=== PATIENT | female | born 1955 | race Caucasian/White ===

== ENCOUNTER 2017-09-06 17:51 | Emergency (ER) | payer OTHER ==
[2017-09-06 18:02] VITALS: O2SAT 98
[2017-09-06] MEDS ORDERED: ONDANSETRON INJ 4 MG/2 ML VIAL IV ONE (18:19)
--- NOTE | 2017-09-06 18:41 | RAD ---
EXAM DESCRIPTION: Chest,1 View CLINICAL HISTORY: dizzy COMPARISON: September 03, 2010 FINDINGS: Cardiac silhouette is within normal limits. Aorta is tortuous. There is mild elevation of the right hemidiaphragm. There is no focal parenchymal or pleural disease. There is no acute osseous process visualized. IMPRESSION: No evidence of acute cardiopulmonary disease. Electronically signed by: Dennis Elias MD 09/06/2017 6:40 PM PRINCIPAL STRATEGIST
--- NOTE | 2017-09-06 18:55 | CT ---
EXAM DESCRIPTION: Head CLINICAL HISTORY: dizzness, N/V, history of CVA COMPARISON: September 03, 2010 TECHNIQUE: Contiguous axial images of the brain were obtained without the administration of intravenous contrast. This exam was performed according to our departmental dose-optimization program, which includes automated exposure control, adjustment of the mA and/or kV according to patient size and/or use of iterative reconstruction technique. FINDINGS: There is no acute intracranial hemorrhage or mass effect. Ventricular system is within normal limits. There is an old infarct within the right cerebellum. Areas of low-attenuation in the periventricular white matter are nonspecific but suggestive small vessel disease. There is adequate gallegos-white matter differentiation. There is no skull fracture. The visualized paranasal sinuses and mastoid air cells are within normal limits. There is atherosclerosis. IMPRESSION: No acute intracranial abnormalities. Electronically signed by: Dennis Elias MD 09/06/2017 6:54 PM [facility]
[2017-09-06] MEDS ORDERED: SODIUM CHLORIDE 0.9% 1000ML 1,000 ML IVS ONE ×2 (19:03→20:59)
[2017-09-06] MEDS ORDERED: MECLIZINE HCL 12.5 MG TAB PO ONE (20:58)
--- NOTE | 2017-09-06 22:52 | ED.PDOC ---
History of Present Illness - General Chief Complaint: Neuro Symptoms/Deficits Stated Complaint: dizziness, nausea Time Seen by Provider: 09/06/17 17:56 Source: patient Exam Limitations: no limitations - History of Present Illness Initial Comments: Patient presents with dizziness since this afternoon. She said it occurred once at the salon then again after she was driving. It is associated with nausea and vomited x one. She has had brief episodes in the past but all have resolved much more quickly. Denies any other symptoms. Timing/Duration: 4-6 hours Severity: moderate Improving Factors: nothing Worsening Factors: nothing Associated Symptoms: nausea/vomiting Allergies/Adverse Reactions: Allergies Morphine Allergy (Verified 04/25/16 22:08) Home Medications: Ambulatory Orders Glipizide 10 mg PO DAILY 04/25/16 Losartan Potassium 100 mg PO DAILY 04/25/16 Metformin HCl 500 mg PO TID 04/25/16 Metoprolol Succinate [Toprol Xl] 200 mg PO BID 04/25/16 hydrALAZINE HCl [(None)] 25 mg PO TID 04/25/16 Ciprofloxacin [Cipro] 500 mg PO BID #20 tab 04/26/16 Famotidine 20 mg PO DAILY #30 tab 04/26/16 Metronidazole 500 mg PO TID #30 tab 04/26/16 Ondansetron [Zofran Odt] 4 mg PO Q4H PRN #10 tab 04/26/16 Promethazine HCl [Phenergan] 25 mg NV Q6H PRN #10 sup 04/26/16 Meclizine HCl [Meclizine 25] 25 mg PO DAILY #10 tab 09/06/17 Review of Systems - Review of Systems Constitutional: States: no symptoms reported EENTM: States: no symptoms reported Respiratory: States: no symptoms reported Cardiology: States: no symptoms reported Gastrointestinal/Abdominal: States: no symptoms reported Genitourinary: States: no symptoms reported Musculoskeletal: States: no symptoms reported Skin: States: no symptoms reported Neurological: States: see HPI Endocrine: States: no symptoms reported Past Medical History (General) - Patient Medical History Hx Seizures: No Hx Stroke: Yes Hx Dementia: No Hx Asthma: No Hx of COPD: No Hx Cardiac Disorders: Yes Hx Congestive Heart Failure: No Hx Pacemaker: No Hx Hypertension: Yes Hx Thyroid Disease: No Hx Diabetes: Yes Hx Gastroesophageal Reflux: No Hx Renal Disease: No Hx Cancer: No Hx of HIV: No Hx Hepatitis C: No Hx MRSA: No - Vaccination History Hx Tetanus, Diphtheria Vaccination: No Hx Influenza Vaccination: Yes Hx Pneumococcal Vaccination: No - Social History Hx Tobacco Use: No Hx Chewing Tobacco Use: No Hx Alcohol Use: No Hx Substance Use: No Hx Substance Use Treatment: No Hx Depression: No Hx Physical Abuse: No Hx Emotional Abuse: No Hx Suspected Abuse: No - Female History Patient : No Family Medical History - Family History Mother Family History: Unknown Physical Exam - Physical Exam General Appearance: Alert Eye Exam: bilateral normal Ears, Nose, Throat: normal ENT inspection Neck: non-tender, full range of motion, supple Respiratory: lungs clear, normal breath sounds Cardiovascular/Chest: normal peripheral pulses, regular rate, rhythm, no edema Gastrointestinal/Abdominal: normal bowel sounds, non tender, soft Extremity: normal range of motion, non-tender, normal inspection 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, no motor/sensory deficits, alert, normal mood/affect, oriented x 3 DTR: 2+: Biceps, left, Biceps, right, Triceps, left, Triceps, right, Brachioradialis, left, Brachioradialis, right, Achilles, left, Achilles, right, Patellar, left, Patellar, right Skin Exam: normal color Lymphatic: no adenopathy Progress - Progress Progress: 09/06/17 22:53 Laboratory Tests 09/06/17 09/06/17 09/06/17 18:03 18:19 18:19 WBC 13.0 H RBC 4.74 Hgb 12.6 Hct 38.6 MCV 81.4 MCH 26.7 L MCHC 32.8 L RDW 13.7 Plt Count 396 MPV 7.4 Absolute Neuts (auto) 10.80 H Absolute Lymphs (auto) 1.70 Absolute Monos (auto) 0.30 Absolute Eos (auto) 0.00 Absolute Basos (auto) 0.10 Neutrophils % 83.5 H Lymphocytes % 13.2 L Monocytes % 2.5 Eosinophils % 0.1 L Basophils % 0.7 PT INR PTT (SP) Sodium 135 Potassium 3.9 Chloride 100 L Carbon Dioxide 23 Anion Gap 15.9 BUN 28 H Creatinine 1.16 BUN/Creatinine Ratio 24.1 H POC Glucose 212 H Random Glucose 232 H Serum Osmolality 283.0 Calcium 10.0 Total Bilirubin 0.5 AST 17 ALT 15 Alkaline Phosphatase 70 Creatine Kinase 82 CK-MB (CK-2) 2.6 CK-MB (CK-2) % Not Reportable Troponin I < 0.02 B-Natriuretic Peptide Serum Total Protein 8.4 H Albumin 4.7 Globulin 3.7 H Albumin/Globulin Ratio 1.3 TSH Thyroxine (T4) Urine Color Urine Appearance Urine pH Ur Specific [place] Urine Protein Urine Glucose (UA) Urine Ketones Urine Blood Urine Nitrite Urine Bilirubin Urine Urobilinogen Ur Leukocyte Esterase Urine RBC Urine WBC Ur Epithelial Cells Urine Bacteria 09/06/17 09/06/17 09/06/17 18:19 18:19 18:50 WBC RBC Hgb Hct MCV MCH MCHC RDW Plt Count MPV Absolute Neuts (auto) Absolute Lymphs (auto) Absolute Monos (auto) Absolute Eos (auto) Absolute Basos (auto) Neutrophils % Lymphocytes % Monocytes % Eosinophils % Basophils % PT 10.9 INR 0.960 PTT (SP) 31.3 Sodium Potassium Chloride Carbon Dioxide Anion Gap BUN Creatinine BUN/Creatinine Ratio POC Glucose Random Glucose Serum Osmolality Calcium Total Bilirubin AST ALT Alkaline Phosphatase Creatine Kinase CK-MB (CK-2) CK-MB (CK-2) % Troponin I B-Natriuretic Peptide 26.0 Serum Total Protein Albumin Globulin Albumin/Globulin Ratio TSH 1.82 Thyroxine (T4) 10.84 Urine Color Urine Appearance Urine pH Ur Specific [place] Urine Protein Urine Glucose (UA) Urine Ketones Urine Blood Urine Nitrite Urine Bilirubin Urine Urobilinogen Ur Leukocyte Esterase Urine RBC Urine WBC Ur Epithelial Cells Urine Bacteria 09/06/17 20:00 WBC RBC Hgb Hct MCV MCH MCHC RDW Plt Count MPV Absolute Neuts (auto) Absolute Lymphs (auto) Absolute Monos (auto) Absolute Eos (auto) Absolute Basos (auto) Neutrophils % Lymphocytes % Monocytes % Eosinophils % Basophils % PT INR PTT (SP) Sodium Potassium Chloride Carbon Dioxide Anion Gap BUN Creatinine BUN/Creatinine Ratio POC Glucose Random Glucose Serum Osmolality Calcium Total Bilirubin AST ALT Alkaline Phosphatase Creatine Kinase CK-MB (CK-2) CK-MB (CK-2) % Troponin I B-Natriuretic Peptide Serum Total Protein Albumin Globulin Albumin/Globulin Ratio TSH Thyroxine (T4) Urine Color Yellow Urine Appearance Clear Urine pH 5.0 Ur Specific [place] 1.020 Urine Protein 100 H Urine Glucose (UA) 100 H Urine Ketones 15 H Urine Blood Trace-lysed H Urine Nitrite Negative Urine Bilirubin Negative Urine Urobilinogen 0.2 Ur Leukocyte Esterase Negative Urine RBC 0-1 Urine WBC 1-3 Ur Epithelial Cells 0-[address] head negative. CXR negative. EKG read by me showed NSR with no ST changes nor T wave inversions. No LBBB. Patient was given NS one liter IV boluses x 2 and meclizine 25 mg po x one. Symptoms resolved. She was told to follow up with her primary care physician as scheduled or in two days if symptoms recur. Departure - Departure Clinical Impression: Vertigo Disposition: Discharge to Home or Self Care Condition: Good Departure Forms: ED Discharge - Pt. Copy, Patient Portal Self Enrollment Diet: resume usual diet Activity: increase activity as tolerated Referrals: BLAYNE CORONEL [Primary Care Provider] - 1-2 Weeks Prescriptions: Meclizine HCl [Meclizine 25] 25 mg PO DAILY #10 tab Home Medications: Ambulatory Orders Glipizide 10 mg PO DAILY 04/25/16 Losartan Potassium 100 mg PO DAILY 04/25/16 Metformin HCl 500 mg PO TID 04/25/16 Metoprolol Succinate [Toprol Xl] 200 mg PO BID 04/25/16 hydrALAZINE HCl [(None)] 25 mg PO TID 04/25/16 Ciprofloxacin [Cipro] 500 mg PO BID #20 tab 04/26/16 Famotidine 20 mg PO DAILY #30 tab 04/26/16 Metronidazole 500 mg PO TID #30 tab 04/26/16 Ondansetron [Zofran Odt] 4 mg PO Q4H PRN #10 tab 04/26/16 Promethazine HCl [Phenergan] 25 mg NV Q6H PRN #10 sup 04/26/16 Meclizine HCl [Meclizine 25] 25 mg PO DAILY #10 tab 09/06/17 Additional Instructions: Follow up with your regular doctor as scheduled. See your regular doctor on saturday if symptoms start again. Take the prescription medication as directed for dizziness.
[2017-09-06 23:26] VITALS: BP 152/93; TEMP 98.4
== END 2017-09-06 23:26 | disposition home or self-care (01) ==
LOC: ER 17:51
DX: R42 Dizziness and giddiness (principal); R11.2 Nausea with vomiting, unspecified; I10 Essential (primary) hypertension; E11.9 Type 2 diabetes mellitus without complications